=== PATIENT | female | born 1970 | race Caucasian/White ===

== ENCOUNTER → 2021-04-22 18:36 | Emergency (ER) | payer OTHER ==
[~2021-04-22 18:36] MED LIST: KEFLEX750 MG PO; ZOFRAN ODT 4 MG4 MG GT
== END | disposition left against medical advice (07) ==
LOC: ER1 18:36
DX: Z53.21 Procedure and treatment not carried out due to patient leaving prior to being seen by health care provider (principal)

== ENCOUNTER 2021-04-23 16:12 | Emergency (ER) | payer OTHER ==
[2021-04-23 16:52] LABS: HEMOGLOBIN 14.8 gm/dl (12.3-15.3); RED BLOOD COUNT 5.11 M/UL (4.00-5.10)
[2021-04-23] MEDS ORDERED: ZOFRAN ODT 4 MG4 MG GT (20:31)
[2021-04-23] MEDS ORDERED: KEFLEX750 MG PO (20:31)
== END 2021-04-23 20:43 | disposition home or self-care (01) ==
LOC: ER1 16:12
PROVIDERS: Physician Assistant
DX: N39.0 Urinary tract infection, site not specified (principal); E87.6 Hypokalemia; R19.7 Diarrhea, unspecified; Z20.822 Contact with and (suspected) exposure to COVID-19; F17.200 Nicotine dependence, unspecified, uncomplicated
CPT/HCPCS: 80053; 81001; 85025; 87077; 87086; 87186; 96374; 96375; 99284; J0690; J2405; U0002